=== PATIENT | male | born 1995 | race Two or more races ===

== ENCOUNTER 2023-09-22 09:47 | Emergency (ER) | payer BC ==
[2023-09-22 10:07] VITALS: RESP 18; BMI 25.7
[2023-09-22 10:33] VITALS: BP 145/90; PULSE 72; TEMP 98.4
[2023-09-22] MEDS ORDERED: DEXAMETHASONE SOD PHOSPHATE 10 MG/1 ML VIAL ONE (10:33)
[2023-09-22] MEDS: DEXAMETHASONE SOD PHOSPHATE 10 MG/1 ML VIAL PO ONE (10:38)
== END 2023-09-22 10:43 | disposition home or self-care (01) ==
LOC: JER 09:47
DX: J02.9 Acute pharyngitis, unspecified (principal); R13.10 Dysphagia, unspecified; R11.0 Nausea; M54.2 Cervicalgia
CPT/HCPCS: 87651; 99283-25; J1100

== ENCOUNTER 2023-12-28 10:45 | Emergency (ER) | payer BC ==
[2023-12-28 10:51] VITALS: RESP 18; TEMP 98.3; BMI 22.1
[2023-12-28 12:26] LABS: PH,URINE 7.5 (5.0-8.0); URINE APPEARANCE CLEAR; URINE BILIRUBIN NEGATIVE (NEGATIVE); URINE COLOR YELLOW; URINE GLUCOSE (UA) NEGATIVE (NEGATIVE); URINE KETONE 3+ (NEGATIVE); URINE LEUK ESTERASE NEGATIVE (NEGATIVE); URINE NITRITE NEGATIVE (NEGATIVE); URINE PROTEIN NEGATIVE (NEGATIVE)
[2023-12-28 12:29] LABS: HCG,QUALITATIVE URINE Negative
[2023-12-28] MEDS ORDERED: ACETAMINOPHEN INJECTION 100 ML IVPB ONE (13:37)
[2023-12-28] MEDS ORDERED: ONDANSETRON 4 MG/2 ML VIAL ONE (13:37)
[2023-12-28] MEDS: ACETAMINOPHEN 1000 MG/100 ML BAG IVPB ONE (13:50)
[2023-12-28] MEDS: ONDANSETRON 4 MG/2 ML VIAL IVPUSH ONE (13:50)
[2023-12-28 14:12] LABS: BASO % 0.6 % (0-2.0); EOS % 0.2 % (0-4.5); HEMATOCRIT 46.1 % (35.4-49); HEMOGLOBIN 14.6 GM/dL (11.7-16.9); LYMPH % 29.1 % (8-40); MCHC 31.6 g/dl (32.0-35.9); MEAN CELL VOLUME 72.7 fl (80-96); MEAN PLT VOLUME 7.6 fl (7.5-11.1); MONO % 6.4 % (3.8-10.2); NEUT % 63.7 % (42.8-82.8); PLATELET COUNT 293 10^3/uL (134-434); RBC 6.34 M/mm3 (4.00-5.60); RDW 14.9 % (11.9-15.9); WHITE BLOOD COUNT 5.7 K/mm3 (4.0-10.0)
[2023-12-28] MEDS: SODIUM CHLORIDE 1,000 ML IV STA (14:15)
[2023-12-28 14:18] LABS: INR 1.06 (0.83-1.09); PROTHROMBIN TIME (PATIENT) 12.2 SEC (9.7-13.0)
[2023-12-28 14:20] LABS: ACTIVATED PTT 31.3 SECONDS (25.2-36.5)
[2023-12-28 14:39] LABS: POTASSIUM 4.4 mmol/L (3.5-5.1)
[2023-12-28 14:42] LABS: ALBUMIN 4.2 g/dl (3.4-5.0); BLOOD UREA NITROGEN 9.2 mg/dL (7-18); CALCIUM 9.2 mg/dL (8.5-10.1)
[2023-12-28 14:44] LABS: CREATININE 1.1 mg/dL (0.55-1.3)
[2023-12-28 14:46] LABS: BILIRUBIN,TOTAL 1.8 mg/dL (0.2-1); TOT PROT 7.7 g/dl (6.4-8.2)
[2023-12-28 17:18] VITALS: BP 119/69; PULSE 84
== END 2023-12-28 18:17 | disposition home or self-care (01) ==
LOC: JER 10:45
PROC: 3E033GC Introduction of Other Therapeutic Substance into Peripheral Vein, Percutaneous Approach (ICD-10-PCS; principal; 2023-12-28)
PROC: 3E033NZ Introduction of Analgesics, Hypnotics, Sedatives into Peripheral Vein, Percutaneous Approach (ICD-10-PCS; 2023-12-28)
PROC: 3E0337Z Introduction of Electrolytic and Water Balance Substance into Peripheral Vein, Percutaneous Approach (ICD-10-PCS; 2023-12-28)
DX: R10.13 Epigastric pain (principal); R11.2 Nausea with vomiting, unspecified
CPT/HCPCS: 36415; 74177-TC; 76705-TC; 80053; 81003; 83690; 84703; 85025; 85610; 85730; 86850; 86900; 86901; 87086; 99285-25; J0131; Q9967

== ENCOUNTER 2024-02-07 04:29 | Day surgery (SDC) | payer BC ==
[2024-01-31 15:45] VITALS: BMI 21.9
[2024-02-07 09:52] VITALS: TEMP 98
[2024-02-07 10:32] VITALS: BP 108/72; PULSE 73; RESP 17
== END 2024-02-07 10:45 | disposition home or self-care (01) ==
LOC: JASU-ENDO 04:29
PROVIDERS: ATTEND Internal Medicine Gastroenterology
PROC: 0DB68ZX Excision of Stomach, Via Natural or Artificial Opening Endoscopic, Diagnostic (ICD-10-PCS; 2024-02-07)
PROC: 0DB28ZX Excision of Middle Esophagus, Via Natural or Artificial Opening Endoscopic, Diagnostic (ICD-10-PCS; 2024-02-07)
PROC: 0DB38ZX Excision of Lower Esophagus, Via Natural or Artificial Opening Endoscopic, Diagnostic (ICD-10-PCS; 2024-02-07)
PROC: 0DB98ZX Excision of Duodenum, Via Natural or Artificial Opening Endoscopic, Diagnostic (ICD-10-PCS; principal; 2024-02-07 10:00)
DX: K29.50 Unspecified chronic gastritis without bleeding (principal); B96.81 Helicobacter pylori [H. pylori] as the cause of diseases classified elsewhere; K21.00 Gastro-esophageal reflux disease with esophagitis, without bleeding
CPT/HCPCS: 88305-TC; 88341-TC; 88342-TC